=== PATIENT | female | born 2000 | race African-American/Black ===

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

== ENCOUNTER 2018-07-19 12:02 | Inpatient (IN) ==
[2018-07-19] MEDS ORDERED: *HR* Nalbuphine 10 MG/ML AMPUL IVP PRN (12:23)
[2018-07-19] MEDS ORDERED: Naloxone 0.4 MG/ML INJ IVP PRN (12:23)
[2018-07-19] MEDS ORDERED: Ondansetron 4 MG/2 ML VIAL IVP PRN (12:23)
[2018-07-19] MEDS ORDERED: Penicillin G Potassium 5,000,000 UNIT in 0.9 % Sodium Chloride Mini Bag 100 ML IVPB ONE (12:23)
[2018-07-19] MEDS ORDERED: Metoclopramide 10 MG/2 ML VIAL IVP PRN (12:23)
[2018-07-19] MEDS ORDERED: Famotidine 20 MG/2 ML VIAL IVP PRN (12:23)
--- NOTE | 2018-07-19 12:37 | OB/GYN History & Physical ---
Date of Encounter: 07/19/18 Time of Encounter: 12:29 Assessment and Plan (1) 38 weeks gestation of Current visit: Yes Status: Acute SROM at 1145 of clear fluid. NST reactive, Category I, FHR baseline 130bpm. Admit for delivery. Anticipate . (2) Rupture of membranes with clear amniotic fluid Current visit: Yes Status: Acute Nitrazine & Fern positive. Admit for delivery. (3) Positive GBS test Current visit: Yes Status: Acute Admit for delivery. PCN Q4 until delivery. (4) Marijuana abuse Current visit: Yes Status: Acute UTox positive for THC in November 2017. Plan for Cord STAT. SW consult. (5) Short interval between pregnancies affecting , antepartum Current visit: Yes Status: Acute History of Present Illness Chief complaint: LOF & Contractions HPI: Ms. Vincenzo Mckeon is a 18 y/o female presents with contractions & LOF. Pt reports contractions began last evening and were about 10 minutes apart this morning with increasing intensity. She reports LOF at 1145 with clear fluid. Denies VB. Reports good FM. First child at 6 days of age from SIDS. A Positive GBS positive Rubella & Varicella immune HIV Negative, Hep B nonreactive Syphillis negative Past Med Surg Social Fam HX - Past Medical History Medical history: no medical history Psychiatric history: no psych history - Past Surgical History Surgical History: no surgical history - Social History Smoking Status: Never smoker Smokeless Tobacco Status: No Alcohol use: none Drug use: none - Family History Mother Living Status: Still Living Obstetrical History - Pregnancies : 2 Para: 1 Term: 1 : 0 Ab's: 0 Livin (First child at 6 days of age from SIDS) Medications and Allergies metroNIDAZOLE [Flagyl] 500 mg PO BID #14 tablet 05/11/17 [Rx] Breast Pump [BREAST PUMP] 1 each .ROUTE AD #1 each 08/17/17 [Rx] Docusate [Colace] 100 mg PO BID PRN #60 capsule 08/17/17 [Rx] Ibuprofen [Motrin] 600 mg PO Q6HR PRN #30 tablet 08/17/17 [Rx] Allergy/AdvReac Type Severity Reaction Status Date / Time No Known Allergies Allergy Verified 12/18/16 19:08 Review of System OB All systems PM: reviewed and no additional remarkable complaints except as stated Exam - Constitutional Constitutional: well developed, well nourished, no acute distress, average body habitus - Lungs Respiratory exam: CTAB - Cardiovascular Cardiovascular exam: RRR, +S1, +S2 - Abdomen Abdomen: Present: bowel sounds normal, gravid, non tender - Extremities Extremities exam: normal inspection Deep Tendon Reflex Grade: 2+ Normal - Cervix Dilation: 3 Effacement: 80 Station: -1 - Anus/Rectum Anus/Rectum: Present: normal perianal skin Results All other labs normal. - VTE Reasons for not Prescribing Prophylaxis: Treatment not Indicated - Low risk for VTE
[2018-07-19 13:14] LABS: Basophils % 0.2 %; Eosinophils # 0.1 K/mcL (0.0-0.6); Eosinophils % 0.5 %; Hematocrit 34.2 % (35.3-44.9); Hemoglobin 11.4 g/dL (11.5-15.4); Immature Granulocytes % 0.9 % (0-4); Lymphocytes # 2.6 K/mcL (0.6-4.6); Lymphocytes % 16.2 %; Mean Corpuscular HGB Conc 33.3 g/dL (31.6-35.5); Mean Corpuscular Hemoglobin 28.4 pg (28.0-33.3); Mean Corpuscular Volume 85.1 fL (83.0-100.0); Mean Platelet Volume 10.8 fL (9.4-12.4); Monocytes # 1.5 K/mcL (0.0-1.3); Monocytes % 9.6 %; Neutrophils # 11.5 K/mcL (1.6-8.9); Platelet Count 173 K/mcL (140-400); Red Blood Count 4.02 M/mcL (3.82-4.97); Red Cell Distribution Width 14.1 % (11.5-14.5); Segmented Neutrophils % 72.6 %
--- NOTE | 2018-07-19 14:21 | OB Labor Progress Note ---
Date of Encounter: 07/19/18 Time of Encounter: 14:19 Labor Progress Note - Subjective Subjective: Pt denies complaints at this time. - Heart Tones Heart Tones: Category I - Te[place]dale Te[place]dale: no contractions - Plan Plan: POC discussed with pt. Pt offered ambulation and/or breastpumping to start contractions but she prefers to start medication to get the contractions going. Will begin pitocin augmentation.
[2018-07-19] MEDS ORDERED: Oxytocin 20 units/ LR 1000 mL 20 UNIT/1,000 ML BAG IVC SCH ×2 (14:30→20:24)
[2018-07-19] MEDS ORDERED: Ringers Solution, Lactated 1,000 ML ONE (14:34)
[2018-07-19 15:21] LABS: Amphetamine Screen,Urine Negative ng/mL (Cutoff=1000); Barbiturate Screen,Urine Negative ng/mL (Cutoff=200); Benzodiazepines Screen,Urine Negative ng/mL (Cutoff=200); Cannabinoid Screen,Urine Negative ng/mL (Cutoff = 50); Cocaine Screen,Urine Negative ng/mL (Cutoff= 300); Opiate Screen,Urine Negative ng/mL (Cutoff=300); Phencyclidine Screen,Urine Negative ng/mL (Cutoff=25)
[2018-07-19] MEDS ORDERED: Penicillin G Potassium 2,500,000 UNIT in 0.9 % Sodium Chloride 100 ML IVPB SCH (16:00)
[2018-07-19] MEDS ORDERED: Benzocaine/Menthol 56 GM AEROSOL SPRAY TP PRN (18:46)
--- NOTE | 2018-07-19 18:51 | OB/GYN Procedure Note ---
Delivery - Delivery Date: 07/19/18 Provider: Lilliam Hodgson Intrapartum events: none Delivery induction: none Delivery augmentation: pitocin Delivery monitor: external FHT, external uterine Anesthesia: intravenous Quantitated Blood Loss: 100 - (s) Infant A Delivery Date: 07/19/18 Infant Delivery Time: 18:13 Presentation: vertex Position: BRYCE Route of delivery: Gender: Male Viability: Viable Pounds: 6 Ounces: 2 Weight Gram: 2.78 kg at 1 minute: 8 at 5 mins: 9 Shoulder Dystocia: not encountered Placenta: spontaneous Cord: 3 umbilical vessels - Repair Episiotomy: none Laceration Description: Superficial (bilateral periurethral) - Complications Delivery complications: none - Disposition Mom disposition: stable in LDR disposition: stable in LDR - Comments Comments: Pt presented following SROM and progressed normally with pitocin augmentation. She underwent for viable male weighing 6lbs 2oz with apgars 8 at one minute and 9 at five minutes. After pulsations ceased the cord was clamped and cut and the placenta delivered spontaneous and intact. Bilateral ydlan-urethral lacerations were superficial and hemostatic and therefore not repaired. EBL 100ml. Mother and baby stable in kangaroo care following .
--- NOTE | 2018-07-19 19:17 | OB/GYN Procedure Note ---
Delivery - Delivery Provider: Lilliam Hodgson Intrapartum events: none Delivery induction: none - Infant (s) A Delivery Date: 07/19/18 Delivery Time: 18:13 Presentation: vertex Position: BRYCE Gender: Male Viability: Viable Weight Gram: 2.78 kg at 1 minute: 8 at 5 mins: 9 Shoulder Dystocia: not encountered - Repair Laceration Description: Superficial
[2018-07-19] MEDS ORDERED: Measles/Mumps/Rubella Vacc 0.5 ML VIAL SQ PRN (20:24)
[2018-07-19] MEDS ORDERED: Acetaminophen 325 MG TABLET PO PRN (20:24)
[2018-07-19] MEDS ORDERED: Ibuprofen 600 MG TABLET PO PRN (20:24)
[2018-07-20] MEDS ORDERED: Prenatal Vit/FA 1 EACH TABLET PO SCH (09:00)
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
[2018-07-20 15:25] VITALS: BP 143/80
== END 2018-07-20 17:30 | disposition home or self-care (01) | DRG 560 ==
LOC: 1NENULAB → OBSVTOIN 12:02 → 1NENUOBS 20:32
PROVIDERS: ADMIT Registered Nurse; ATTEND Registered Nurse

== ENCOUNTER 2019-04-24 21:13 | Observation (INO) ==
--- NOTE | 2019-04-24 22:45 | Emergency Department Note ---
Disposition Clinical Impression: Vaginal bleeding in patient at less than 20 weeks gestation, Threatened Disposition: Still a Patient Condition: Good Instructions: Threatened Miscarriage (ED) Reasons to Return/Additional Instructions: Return to the emergency department if you have any worsening of your current symptoms, or if you develop any new symptoms. Follow-up your emergency department visit by setting up an appointment with your GLASS WORKER to be seen within the next 2 or 3 days. Referrals: Jose G Bell MD [Primary Care Provider] - [facility] [Provider Group] Forms: ED Satisfaction Letter Time of Disposition: 00:33 General Adult HPI - General Chief complaint: ED Vaginal Bleeding Stated complaint: migraine Time Seen by Provider: 04/24/19 22:44 Source: patient Limitations: no limitations Nursing Notes Reviewed: Yes Vital Signs Reviewed: Yes - History of Present Illness HPI Narrative: 18-year-old female presents emergency department with concern for lower abdominal pain, cramping, bleeding. Patient reports that her last true menstrual period was February 19. She reports intermittent bleeding ever since. States that she has been seen in the emergency department and had an ultrasound. Report from that date state that there was no intrauterine identified at that time. Reports that she has not followed up in the OB clinic. States that she has never had this type of discomfort with a in the past. This is her third , her other 2 were normal vaginal deliveries and no other complications. Patient denies any dysuria, urinary. She denies urgency, vaginal discharge, concern for sexual transmitted infection. Pain Scale: 9 - Related Data Home Medications Medication Instructions Recorded Confirmed Vit Calc,Iron,Folic 1 tab PO DAILY 07/19/18 07/19/18 [ Vitamins] Previous Rx's Medication Instructions Recorded Acetaminophen [Tylenol] 650 mg PO Q6HR PRN tablet 07/20/18 Docusate [Colace] 100 mg PO BID capsule 07/20/18 Ibuprofen [Motrin] 600 mg PO Q6HR PRN #60 tablet 07/20/18 Cephalexin [Keflex] 500 mg PO BID 5 Days capsule 04/01/19 Doxylamine/Pyridoxine HCl 1 each PO Q12-24H PRN #20 tablet. 04/01/19 [Joe Allen 10-10 mg Tablet] Acetaminophen [Tylenol] 650 mg PO Q6HR PRN 5 Days #20 04/07/19 tablet Famotidine [Pepcid] 40 mg PO DAILY 30 Days #30 tablet 04/07/19 Pnv No.95/Ferrous Fum/Folic AC 1 each PO DAILY 30 Days #30 tablet 04/07/19 [ Caplet] Allergies Allergy/AdvReac Type Severity Reaction Status Date / Time No Known Allergies Allergy Verified 07/19/18 12:54 All systems ED: reviewed and negative except as stated. Review of Systems: As Per HPI Constitutional: Denies: fever Cardiovascular: Denies: chest pain Respiratory: Denies: cough, dyspnea Gastrointestinal: Reports: abdominal pain. Denies: nausea, vomiting Genitourinary: Denies: urgency, dysuria, frequency Musculoskeletal: Denies: back pain Past Medical History - Past Medical History Attestation: Yes The following information was validated with the patient. Medical history: Reports: no medical history Surgical history: Reports: no surgical history Psychiatric history: Reports: no psych history GLASS WORKER history: Reports: no GLASS WORKER history - Social History Smoking Status: Never smoker Smokeless Tobacco Status: No Alcohol use: Reports: none Drug use: Reports: none Physical Exam - General Limitations: no limitations General appearance: alert, in no apparent distress - Head Head exam: normocephalic - Eye Eye exam: Present: EOMI - ENT ENT exam: mucous membranes moist - Neck Neck exam: Present: trachea midline - Chest Chest inspection: Present: symmetric chest wall rise - Respiratory Respiratory exam: Present: normal lung sounds bilaterally. Absent: respiratory distress, accessory muscle use - Cardiovascular Cardiovascular exam: Present: regular rate, normal rhythm, normal heart sounds - Abdominal Exam Abdominal exam: Present: soft, tenderness. Absent: distention, guarding, rebound, rigidity Abdominal tenderness: Present: suprapubic, moderate - Extremities Exam Extremities exam: Present: full ROM - Back Exam Back exam: Present: normal inspection - Neurological Exam Neurological exam: Present: alert, oriented X3 - Psychiatric Psychiatric exam: Present: normal affect, normal mood - Skin Skin exam: Present: warm, dry, intact, normal color. Absent: rash Course Vital Signs Temperature 98.2 F 04/24/19 21:47 Pulse Rate 108 04/24/19 21:47 Respiratory Rate 20 04/24/19 21:47 Blood Pressure 106/72 04/24/19 21:47 O2 Sat by Pulse Oximetry 97 04/24/19 21:47 Temperature 98.2 F 04/24/19 21:47 Pulse Rate 96 04/24/19 23:04 Respiratory Rate 16 04/24/19 23:04 Blood Pressure 126/90 04/24/19 23:04 O2 Sat by Pulse Oximetry 100 04/24/19 23:04 Oxygen Delivery Oxygen Delivery Room Air Medical Decision Making - MDM Narrative Medical decision making narrative: 18-year-old female presents emergency department with concern for abdominal cramping, bleeding, the setting of . Patient is A+, does not need reexam. Patient mildly tachycardic initially, but blood pressure been stable. Hemoglobin is stable. Beta Quant is elevated. We will have ultrasound come in and confirm intrauterine . Our bedside ultrasound was limited and cannot confirm intrauterine . Transfer of care provided to Dr. Hill. - Lab Data Result diagrams: 04/24/19 23:32 04/24/19 23:32 Lab Results 04/24/19 04/24/19 04/24/19 Range/Units 22:55 22:55 23:32 WBC (4.3-11.1) K/mcL RBC (3.82-4.97) M/mcL Hgb (11.5-15.4) g/dL Hct (35.3-44.9) % MCV (83.0-100.0) fL MCH (28.0-33.3) pg MCHC (31.6-35.5) g/dL RDW (11.5-14.5) % Plt Count (140-400) K/mcL MPV (9.4-12.4) fL Immature Gran % (0-4) % Seg Neutrophils % % Lymphocytes % % Monocytes % % Eosinophils % % Basophils % % Neutrophils # (1.6-8.9) K/mcL Lymphocytes # (0.6-4.6) K/mcL Monocytes # (0.0-1.3) K/mcL Eosinophils # (0.0-0.6) K/mcL Basophils # (0.0-0.2) K/mcL Sodium (136-145) mEq/L Potassium (3.5-5.1) mEq/L Chloride (98-107) mEq/L Carbon Dioxide (23-29) mEq/L BUN (6-20) mg/dL Creatinine (0.60-1.20) mg/dL Est GFR ( Amer) (> 60) Est GFR (Non-Af Amer) (> 60) BUN/Creatinine Ratio (6-26) Glucose (70-105) mg/dL Calculated Osmolality (280-300) Calcium (8.6-10.3) mg/dL Beta HCG, Quant 4249 H (Less than 5) mIU/mL Urine Color Dark Yellow (Yellow) Urine Clarity Clear (Clear) Urine pH 5.5 (5.0-8.0) pH Units Ur Specific [place] > 1.030 H (1.010-1.025) Urine Protein Trace (Neg-Trace) mg/dL Urine Glucose (UA) Normal (Normal) mg/dL Urine Ketones Negative (Negative) mg/dL Urine Blood Large H (Negative) Urine Nitrite Negative (Negative) Urine Bilirubin Negative (Negative) Urine Urobilinogen Normal (Normal) mg/dL Ur Leukocyte Esterase Negative (Negative) Urine Microscopic RBC 0-3 (0-3) per hpf Urine Microscopic WBC 0-3 (0-3) per hpf Ur Squamous Epith Cells Many H (None-Few) per lpf Urine Bacteria None Seen (None-Few) per hpf Hyaline Casts None Seen (None-Few) per lpf Ur Culture Indicated? NO (NO) Urine Test Positive A (Negative) 04/24/19 04/24/19 Range/Units 23:32 23:32 WBC 8.6 (4.3-11.1) K/mcL RBC 4.06 (3.82-4.97) M/mcL Hgb 11.5 (11.5-15.4) g/dL Hct 34.8 L (35.3-44.9) % MCV 85.7 (83.0-100.0) fL MCH 28.3 (28.0-33.3) pg MCHC 33.0 (31.6-35.5) g/dL RDW 12.4 (11.5-14.5) % Plt Count 213 (140-400) K/mcL MPV 10.3 (9.4-12.4) fL Immature Gran % 0.2 (0-4) % Seg Neutrophils % 60.2 % Lymphocytes % 29.7 % Monocytes % 8.8 % Eosinophils % 0.9 % Basophils % 0.2 % Neutrophils # 5.2 (1.6-8.9) K/mcL Lymphocytes # 2.6 (0.6-4.6) K/mcL Monocytes # 0.8 (0.0-1.3) K/mcL Eosinophils # 0.1 (0.0-0.6) K/mcL Basophils # 0.0 (0.0-0.2) K/mcL Sodium 138 (136-145) mEq/L Potassium 3.1 L (3.5-5.1) mEq/L Chloride 106 (98-107) mEq/L Carbon Dioxide 25 (23-29) mEq/L BUN 11 (6-20) mg/dL Creatinine 0.75 (0.60-1.20) mg/dL Est GFR ( Amer) > 60 (> 60) Est GFR (Non-Af Amer) > 60 (> 60) BUN/Creatinine Ratio 15 (6-26) Glucose 101 (70-105) mg/dL Calculated Osmolality 286 (280-300) Calcium 9.0 (8.6-10.3) mg/dL Beta HCG, Quant (Less than 5) mIU/mL Urine Color (Yellow) Urine Clarity (Clear) Urine pH (5.0-8.0) pH Units Ur Specific [place] (1.010-1.025) Urine Protein (Neg-Trace) mg/dL Urine Glucose (UA) (Normal) mg/dL Urine Ketones (Negative) mg/dL Urine Blood (Negative) Urine Nitrite (Negative) Urine Bilirubin (Negative) Urine Urobilinogen (Normal) mg/dL Ur Leukocyte Esterase (Negative) Urine Microscopic RBC (0-3) per hpf Urine Microscopic WBC (0-3) per hpf Ur Squamous Epith Cells (None-Few) per lpf Urine Bacteria (None-Few) per hpf Hyaline Casts (None-Few) per lpf Ur Culture Indicated? (NO) Urine Test (Negative)
[2019-04-24 23:09] LABS: Bilirubin,Urine Negative (Negative); Blood,Urine Large (Negative); Clarity,Urine Clear (Clear); Color,Urine Dark Yellow (Yellow); Glucose,Urine (UA) Normal (Normal); Ketones,Urine Negative (Negative); Leukocyte Esterase,Urine Negative (Negative); Nitrite,Urine Negative (Negative); PH,Urine 5.5 pH Units (5.0-8.0); Protein,Urine Trace mg/dL (Neg-Trace); Specific Gravity,Urine > 1.030 (1.010-1.025); Urobilinogen,Urine Normal (Normal)
[2019-04-24 23:12] LABS: Bacteria,Urine None Seen per hpf (None-Few); Hyaline Casts,Urine None Seen per lpf (None-Few); RBC,Urine 0-3 per hpf (0-3); Squamous Epithelial Cell,Urine Many per lpf (None-Few); WBC,Urine 0-3 per hpf (0-3)
[2019-04-24 23:42] LABS: Basophils % 0.2 %; Eosinophils # 0.1 K/mcL (0.0-0.6); Eosinophils % 0.9 %; Hematocrit 34.8 % (35.3-44.9); Hemoglobin 11.5 g/dL (11.5-15.4); Immature Granulocytes % 0.2 % (0-4); Lymphocytes # 2.6 K/mcL (0.6-4.6); Lymphocytes % 29.7 %; Mean Corpuscular Hemoglobin 28.3 pg (28.0-33.3); Mean Corpuscular Volume 85.7 fL (83.0-100.0); Mean Platelet Volume 10.3 fL (9.4-12.4); Monocytes # 0.8 K/mcL (0.0-1.3); Monocytes % 8.8 %; Neutrophils # 5.2 K/mcL (1.6-8.9); Platelet Count 213 K/mcL (140-400); Red Blood Count 4.06 M/mcL (3.82-4.97); Red Cell Distribution Width 12.4 % (11.5-14.5); Segmented Neutrophils % 60.2 %; White Blood Count 8.6 K/mcL (4.3-11.1)
[2019-04-25 00:01] LABS: BUN/Creatinine Ratio 15 (6-26); Blood Urea Nitrogen 11 mg/dL (6-20); Carbon Dioxide 25 mEq/L (23-29); Chloride 106 mEq/L (98-107); Glucose 101 mg/dL (70-105); Osmolality,Calculated 286 (280-300); Potassium 3.1 mEq/L (3.5-5.1); Sodium 138 mEq/L (136-145); eGFR For African Americans > 60 (> 60); eGFR For Non-African Americans > 60 (> 60)
[2019-04-25] MEDS ORDERED: Potassium Chloride Elixir 20 MEQ/15 ML UDC PO ONE (00:08)
[2019-04-25] MEDS ORDERED: *HR* Nalbuphine 10 MG/ML AMPUL IV STA (00:28)
--- NOTE | 2019-04-25 00:29 | Emergency Department Note ---
Disposition Clinical Impression: Vaginal bleeding in patient at less than 20 weeks gestation Disposition: Still a Patient Condition: Good Prescriptions: Lidocaine 4% CRM (LMX) [Lmx 4] 5 gm TP TID #1 cream Referrals: Jose G Bell MD [Primary Care Provider] - Forms: ED Satisfaction Letter Time of Disposition: 00:31 General Adult HPI - General Chief complaint: ED Vaginal Bleeding Stated complaint: Vaginal Bleeding/Cramping Time Seen by Provider: 04/24/19 22:44 Source: patient Limitations: no limitations - History of Present Illness Pain Scale: 9 - Related Data Home Medications Medication Instructions Recorded Confirmed Vit Calc,Iron,Folic 1 tab PO DAILY 07/19/18 07/19/18 [ Vitamins] Previous Rx's Medication Instructions Recorded Acetaminophen [Tylenol] 650 mg PO Q6HR PRN tablet 07/20/18 Docusate [Colace] 100 mg PO BID capsule 07/20/18 Ibuprofen [Motrin] 600 mg PO Q6HR PRN #60 tablet 07/20/18 Cephalexin [Keflex] 500 mg PO BID 5 Days capsule 04/01/19 Doxylamine/Pyridoxine HCl 1 each PO Q12-24H PRN #20 tablet. 04/01/19 [Joe Allen 10-10 mg Tablet] Acetaminophen [Tylenol] 650 mg PO Q6HR PRN 5 Days #20 04/07/19 tablet Famotidine [Pepcid] 40 mg PO DAILY 30 Days #30 tablet 04/07/19 Pnv No.95/Ferrous Fum/Folic AC 1 each PO DAILY 30 Days #30 tablet 04/07/19 [ Caplet] Lidocaine 4% CRM (LMX) [Lmx 4] 5 gm TP TID #1 cream 04/24/19 Allergies Allergy/AdvReac Type Severity Reaction Status Date / Time No Known Allergies Allergy Verified 07/19/18 12:54 Past Medical History - Past Medical History Medical history: Reports: no medical history Surgical history: Reports: no surgical history Psychiatric history: Reports: no psych history LINE CONSTRUCTION SUPERVISOR history: Reports: no LINE CONSTRUCTION SUPERVISOR history - Social History Smoking Status: Never smoker Smokeless Tobacco Status: No Alcohol use: Reports: none Drug use: Reports: none Physical Exam - General Limitations: no limitations General appearance: alert, in no apparent distress Course Vital Signs Temperature 98.2 F 04/24/19 21:47 Pulse Rate 108 04/24/19 21:47 Respiratory Rate 20 04/24/19 21:47 Blood Pressure 106/72 04/24/19 21:47 O2 Sat by Pulse Oximetry 97 04/24/19 21:47 Temperature 98.2 F 04/24/19 21:47 Pulse Rate 96 04/24/19 23:04 Respiratory Rate 16 04/24/19 23:04 Blood Pressure 126/90 04/24/19 23:04 O2 Sat by Pulse Oximetry 100 04/24/19 23:04 Oxygen Delivery Oxygen Delivery Room Air Medical Decision Making - Lab Data Result diagrams: 04/24/19 23:32 04/24/19 23:32 Lab Results 04/24/19 04/24/19 04/24/19 Range/Units 22:55 22:55 23:32 WBC 8.6 (4.3-11.1) K/mcL RBC 4.06 (3.82-4.97) M/mcL Hgb 11.5 (11.5-15.4) g/dL Hct 34.8 L (35.3-44.9) % MCV 85.7 (83.0-100.0) fL MCH 28.3 (28.0-33.3) pg MCHC 33.0 (31.6-35.5) g/dL RDW 12.4 (11.5-14.5) % Plt Count 213 (140-400) K/mcL MPV 10.3 (9.4-12.4) fL Immature Gran % 0.2 (0-4) % Seg Neutrophils % 60.2 % Lymphocytes % 29.7 % Monocytes % 8.8 % Eosinophils % 0.9 % Basophils % 0.2 % Neutrophils # 5.2 (1.6-8.9) K/mcL Lymphocytes # 2.6 (0.6-4.6) K/mcL Monocytes # 0.8 (0.0-1.3) K/mcL Eosinophils # 0.1 (0.0-0.6) K/mcL Basophils # 0.0 (0.0-0.2) K/mcL Sodium (136-145) mEq/L Potassium (3.5-5.1) mEq/L Chloride (98-107) mEq/L Carbon Dioxide (23-29) mEq/L BUN (6-20) mg/dL Creatinine (0.60-1.20) mg/dL Est GFR ( Amer) (> 60) Est GFR (Non-Af Amer) (> 60) BUN/Creatinine Ratio (6-26) Glucose (70-105) mg/dL Calculated Osmolality (280-300) Calcium (8.6-10.3) mg/dL Urine Color Dark Yellow (Yellow) Urine Clarity Clear (Clear) Urine pH 5.5 (5.0-8.0) pH Units Ur Specific [place] > 1.030 H (1.010-1.025) Urine Protein Trace (Neg-Trace) mg/dL Urine Glucose (UA) Normal (Normal) mg/dL Urine Ketones Negative (Negative) mg/dL Urine Blood Large H (Negative) Urine Nitrite Negative (Negative) Urine Bilirubin Negative (Negative) Urine Urobilinogen Normal (Normal) mg/dL Ur Leukocyte Esterase Negative (Negative) Urine Microscopic RBC 0-3 (0-3) per hpf Urine Microscopic WBC 0-3 (0-3) per hpf Ur Squamous Epith Cells Many H (None-Few) per lpf Urine Bacteria None Seen (None-Few) per hpf Hyaline Casts None Seen (None-Few) per lpf Ur Culture Indicated? NO (NO) Urine Test Positive A (Negative) 04/24/19 Range/Units 23:32 WBC (4.3-11.1) K/mcL RBC (3.82-4.97) M/mcL Hgb (11.5-15.4) g/dL Hct (35.3-44.9) % MCV (83.0-100.0) fL MCH (28.0-33.3) pg MCHC (31.6-35.5) g/dL RDW (11.5-14.5) % Plt Count (140-400) K/mcL MPV (9.4-12.4) fL Immature Gran % (0-4) % Seg Neutrophils % % Lymphocytes % % Monocytes % % Eosinophils % % Basophils % % Neutrophils # (1.6-8.9) K/mcL Lymphocytes # (0.6-4.6) K/mcL Monocytes # (0.0-1.3) K/mcL Eosinophils # (0.0-0.6) K/mcL Basophils # (0.0-0.2) K/mcL Sodium 138 (136-145) mEq/L Potassium 3.1 L (3.5-5.1) mEq/L Chloride 106 (98-107) mEq/L Carbon Dioxide 25 (23-29) mEq/L BUN 11 (6-20) mg/dL Creatinine 0.75 (0.60-1.20) mg/dL Est GFR ( Amer) > 60 (> 60) Est GFR (Non-Af Amer) > 60 (> 60) BUN/Creatinine Ratio 15 (6-26) Glucose 101 (70-105) mg/dL Calculated Osmolality 286 (280-300) Calcium 9.0 (8.6-10.3) mg/dL Urine Color (Yellow) Urine Clarity (Clear) Urine pH (5.0-8.0) pH Units Ur Specific [place] (1.010-1.025) Urine Protein (Neg-Trace) mg/dL Urine Glucose (UA) (Normal) mg/dL Urine Ketones (Negative) mg/dL Urine Blood (Negative) Urine Nitrite (Negative) Urine Bilirubin (Negative) Urine Urobilinogen (Normal) mg/dL Ur Leukocyte Esterase (Negative) Urine Microscopic RBC (0-3) per hpf Urine Microscopic WBC (0-3) per hpf Ur Squamous Epith Cells (None-Few) per lpf Urine Bacteria (None-Few) per hpf Hyaline Casts (None-Few) per lpf Ur Culture Indicated? (NO) Urine Test (Negative) Attestation Statement - Attestation Attestation: I reviewed the residents documentation and agree with the residents assessment and plan of care. I have personally had face to face time with the patient. (Brief History, Brief Exam, and MDM) I personally supervised and was present for the costello/critical portions of the following procedures completed by the resident: transabdominal US 18 year old female presents to the ED with complaints of vaginal bleeding and her LMNP was February 19 and has been notiing dark red blood and small clots since then and follows with box fabricator group here. She is a female and has not had proper care. She was seen her [place] April 07 with an inconclusive US for rule out ectopic pregnacy. She is expereincing increased adbominal pain now. FA ST exam is otherwise negative and evaluation of her uterus transab shows some small pelvic fluid that could be concerning for ecoptic as we are having a difficult time assessing for IUP on transab US as she appers to have a bhcg that is 4249. Patinet will need a transvaginal US to rule out ectopic pregnacy. I will sign patient out to Dr. Sneed for followup on US and cosult with OBGYN as needed
--- NOTE | 2019-04-25 00:35 | Emergency Department Note ---
Disposition Clinical Impression: Vaginal bleeding in patient at less than 20 weeks gestation Ectopic without intrauterine Qualifiers: Location of ectopic : unspecified location Qualified Code(s): O00.90 - Unspecified ectopic without intrauterine Disposition: Admitted As Inpatient Condition: Good Instructions: Threatened Miscarriage (ED), Ectopic (ED) Reasons to Return/Additional Instructions: Return to the emergency department if you have any worsening of your current symptoms, or if you develop any new symptoms. Follow-up your emergency department visit by setting up an appointment with your WIRE DRAWING MACHINE TENDER to be seen within the next 2 or 3 days. Referrals: WIRE DRAWING MACHINE TENDER [facility] [Provider Group] Jose G Bell MD [Primary Care Provider] - Forms: ED Satisfaction Letter Time of Disposition: 01:46 General Adult HPI - General Chief complaint: ED Vaginal Bleeding Stated complaint: Vaginal Bleeding/Cramping Time Seen by Provider: 04/24/19 22:44 Source: patient Limitations: no limitations - History of Present Illness Pain Scale: 9 - Related Data Home Medications Medication Instructions Recorded Confirmed Vit Calc,Iron,Folic 1 tab PO DAILY 07/19/18 07/19/18 [ Vitamins] Previous Rx's Medication Instructions Recorded Acetaminophen [Tylenol] 650 mg PO Q6HR PRN tablet 07/20/18 Docusate [Colace] 100 mg PO BID capsule 07/20/18 Ibuprofen [Motrin] 600 mg PO Q6HR PRN #60 tablet 07/20/18 Cephalexin [Keflex] 500 mg PO BID 5 Days capsule 04/01/19 Doxylamine/Pyridoxine HCl 1 each PO Q12-24H PRN #20 tablet. 04/01/19 [Joe Allen 10-10 mg Tablet] Acetaminophen [Tylenol] 650 mg PO Q6HR PRN 5 Days #20 04/07/19 tablet Famotidine [Pepcid] 40 mg PO DAILY 30 Days #30 tablet 04/07/19 Pnv No.95/Ferrous Fum/Folic AC 1 each PO DAILY 30 Days #30 tablet 04/07/19 [ Caplet] Allergies Allergy/AdvReac Type Severity Reaction Status Date / Time No Known Allergies Allergy Verified 07/19/18 12:54 Constitutional: Denies: fever Cardiovascular: Denies: chest pain Respiratory: Denies: cough, dyspnea Gastrointestinal: Reports: abdominal pain. Denies: nausea, vomiting Genitourinary: Denies: urgency, dysuria, frequency Musculoskeletal: Denies: back pain Past Medical History - Past Medical History Medical history: Reports: no medical history Surgical history: Reports: no surgical history Psychiatric history: Reports: no psych history WIRE DRAWING MACHINE TENDER history: Reports: no WIRE DRAWING MACHINE TENDER history - Social History Smoking Status: Never smoker Smokeless Tobacco Status: No Alcohol use: Reports: none Drug use: Reports: none Physical Exam - General Limitations: no limitations General appearance: alert, in no apparent distress Course Vital Signs Temperature 98.2 F 04/24/19 21:47 Pulse Rate 108 04/24/19 21:47 Respiratory Rate 20 04/24/19 21:47 Blood Pressure 106/72 04/24/19 21:47 O2 Sat by Pulse Oximetry 97 04/24/19 21:47 Temperature 98.2 F 04/24/19 21:47 Pulse Rate 96 04/24/19 23:04 Respiratory Rate 16 04/24/19 23:04 Blood Pressure 126/90 04/24/19 23:04 O2 Sat by Pulse Oximetry 100 04/24/19 23:04 Oxygen Delivery Oxygen Delivery Room Air Medical Decision Making - Lab Data Result diagrams: 04/24/19 23:32 04/24/19 23:32 Lab Results 04/24/19 04/24/19 04/24/19 Range/Units 22:55 22:55 23:32 WBC (4.3-11.1) K/mcL RBC (3.82-4.97) M/mcL Hgb (11.5-15.4) g/dL Hct (35.3-44.9) % MCV (83.0-100.0) fL MCH (28.0-33.3) pg MCHC (31.6-35.5) g/dL RDW (11.5-14.5) % Plt Count (140-400) K/mcL MPV (9.4-12.4) fL Immature Gran % (0-4) % Seg Neutrophils % % Lymphocytes % % Monocytes % % Eosinophils % % Basophils % % Neutrophils # (1.6-8.9) K/mcL Lymphocytes # (0.6-4.6) K/mcL Monocytes # (0.0-1.3) K/mcL Eosinophils # (0.0-0.6) K/mcL Basophils # (0.0-0.2) K/mcL Sodium (136-145) mEq/L Potassium (3.5-5.1) mEq/L Chloride (98-107) mEq/L Carbon Dioxide (23-29) mEq/L BUN (6-20) mg/dL Creatinine (0.60-1.20) mg/dL Est GFR ( Amer) (> 60) Est GFR (Non-Af Amer) (> 60) BUN/Creatinine Ratio (6-26) Glucose (70-105) mg/dL Calculated Osmolality (280-300) Calcium (8.6-10.3) mg/dL Beta HCG, Quant 4249 H (Less than 5) mIU/mL Urine Color Dark Yellow (Yellow) Urine Clarity Clear (Clear) Urine pH 5.5 (5.0-8.0) pH Units Ur Specific [place] > 1.030 H (1.010-1.025) Urine Protein Trace (Neg-Trace) mg/dL Urine Glucose (UA) Normal (Normal) mg/dL Urine Ketones Negative (Negative) mg/dL Urine Blood Large H (Negative) Urine Nitrite Negative (Negative) Urine Bilirubin Negative (Negative) Urine Urobilinogen Normal (Normal) mg/dL Ur Leukocyte Esterase Negative (Negative) Urine Microscopic RBC 0-3 (0-3) per hpf Urine Microscopic WBC 0-3 (0-3) per hpf Ur Squamous Epith Cells Many H (None-Few) per lpf Urine Bacteria None Seen (None-Few) per hpf Hyaline Casts None Seen (None-Few) per lpf Ur Culture Indicated? NO (NO) Urine Test Positive A (Negative) 04/24/19 04/24/19 Range/Units 23:32 23:32 WBC 8.6 (4.3-11.1) K/mcL RBC 4.06 (3.82-4.97) M/mcL Hgb 11.5 (11.5-15.4) g/dL Hct 34.8 L (35.3-44.9) % MCV 85.7 (83.0-100.0) fL MCH 28.3 (28.0-33.3) pg MCHC 33.0 (31.6-35.5) g/dL RDW 12.4 (11.5-14.5) % Plt Count 213 (140-400) K/mcL MPV 10.3 (9.4-12.4) fL Immature Gran % 0.2 (0-4) % Seg Neutrophils % 60.2 % Lymphocytes % 29.7 % Monocytes % 8.8 % Eosinophils % 0.9 % Basophils % 0.2 % Neutrophils # 5.2 (1.6-8.9) K/mcL Lymphocytes # 2.6 (0.6-4.6) K/mcL Monocytes # 0.8 (0.0-1.3) K/mcL Eosinophils # 0.1 (0.0-0.6) K/mcL Basophils # 0.0 (0.0-0.2) K/mcL Sodium 138 (136-145) mEq/L Potassium 3.1 L (3.5-5.1) mEq/L Chloride 106 (98-107) mEq/L Carbon Dioxide 25 (23-29) mEq/L BUN 11 (6-20) mg/dL Creatinine 0.75 (0.60-1.20) mg/dL Est GFR ( Amer) > 60 (> 60) Est GFR (Non-Af Amer) > 60 (> 60) BUN/Creatinine Ratio 15 (6-26) Glucose 101 (70-105) mg/dL Calculated Osmolality 286 (280-300) Calcium 9.0 (8.6-10.3) mg/dL Beta HCG, Quant (Less than 5) mIU/mL Urine Color (Yellow) Urine Clarity (Clear) Urine pH (5.0-8.0) pH Units Ur Specific [place] (1.010-1.025) Urine Protein (Neg-Trace) mg/dL Urine Glucose (UA) (Normal) mg/dL Urine Ketones (Negative) mg/dL Urine Blood (Negative) Urine Nitrite (Negative) Urine Bilirubin (Negative) Urine Urobilinogen (Normal) mg/dL Ur Leukocyte Esterase (Negative) Urine Microscopic RBC (0-3) per hpf Urine Microscopic WBC (0-3) per hpf Ur Squamous Epith Cells (None-Few) per lpf Urine Bacteria (None-Few) per hpf Hyaline Casts (None-Few) per lpf Ur Culture Indicated? (NO) Urine Test (Negative) Critical Care Time Critical Care Time: Yes Total Critical Care Time: 30 Attestation: The high probability of a clinically significant, sudden or life threatening deterioration of the [] system(s) required my full and direct attention, intervention and personal management. The aggregate critical care time was [] minutes. This time is in addition to time spent performing reported procedures but includes the following: [] Data Review and interpretation [] Patient assessment and monitoring of vital signs [] Documentation [] Medication orders and management Attestation Statement - Attestation Attestation: Care assumed from Dr. Juan Carlos Evangelista and Rico pending pelvic US. Labs reviewed by me. Patient known blood type A+ 01:40: Case discussed with the interpreting radiologist. No intrauterine identified. Fluid in the pelvis. Concern for tubal . Call placed to WIRE DRAWING MACHINE TENDER on-call. The patient was reassessed. She is resting comfortably
[2019-04-25] MEDS ORDERED: *HR* Nalbuphine 10 MG/ML AMPUL IV ONE (02:55)
[2019-04-25] MEDS ORDERED: cefOXitin 1,000 MG in 0.9 % Sodium Chloride Mini Bag 100 ML IVPB ONE (02:58)
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
[2019-04-25] MEDS ORDERED: Ondansetron ODT 4 MG TAB.RAPDIS SL PRN (03:31)
[2019-04-25] MEDS ORDERED: Naloxone 0.4 MG/ML INJ IVP PRN (03:31)
[2019-04-25] MEDS ORDERED: Acetaminophen IV 1,000 MG/100 ML INFUS..BTL IVPB PRN (03:31)
[2019-04-25] MEDS ORDERED: Doxycycline 100 MG in 0.9 % Sodium Chloride Mini Bag 100 ML IVPB SCH (09:02)
[2019-04-25 10:42] LABS: Chlamydia Trachomatis DNA Ur NOT DETECTED (Not Detect)
[2019-04-25] MEDS: Ketorolac 30 MG/ML VIAL IVP PRN ×2 (11:22→22:25)
[2019-04-25 13:06] LABS: Basophils % 0.5 %; Eosinophils # 0.1 K/mcL (0.0-0.6); Eosinophils % 2.4 %; Hematocrit 36.8 % (35.3-44.9); Hemoglobin 11.9 g/dL (11.5-15.4); Immature Granulocytes % 0.2 % (0-4); Lymphocytes # 2.6 K/mcL (0.6-4.6); Lymphocytes % 43.8 %; Mean Corpuscular HGB Conc 32.3 g/dL (31.6-35.5); Mean Corpuscular Hemoglobin 27.5 pg (28.0-33.3); Mean Platelet Volume 10.5 fL (9.4-12.4); Monocytes # 0.6 K/mcL (0.0-1.3); Monocytes % 10.5 %; Neutrophils # 2.5 K/mcL (1.6-8.9); Platelet Count 196 K/mcL (140-400); Red Blood Count 4.33 M/mcL (3.82-4.97); Red Cell Distribution Width 12.5 % (11.5-14.5); Segmented Neutrophils % 42.6 %; White Blood Count 5.9 K/mcL (4.3-11.1)
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
--- NOTE | 2019-04-25 18:18 | OB/GYN Progress Note ---
Date of Encounter: 04/25/19 Time of Encounter: 18:16 - Assessment and Plan (1) Vaginal bleeding in patient at less than 20 weeks gestation Current Visit: Yes Status: Acute Sequence of events: 04/11- patient presented to the ED with abdominal pain and was noted to be . Her beta hCG was 151. 7/8- she returned to the ED for a repeat beta hCG and was 135. 7/11- she presented again to the ED with abdominal pain and spotting. Her beta hCG had risen to 407. A TVUS done showed no IUP but a complex cyst on the right measuring 2.2cm. 04/24- she presented with vaginal bleeding and her beta HCG was 4249 with extensive free fluid in the pelvis concerning for a ruptured ectopic. No IUP was noted. The patient was clinically stable including her labs and vitals and she did not want surgery so she was managed expectantly. 04/25- repeat beta hCG showed a drop of 3777 and she continues to remain stable I discussed with her that the next steps in management will be to repeat the beta hCG tomorrow and will consider MTX before discharge if the levels have plateaued or dropped slightly. She still does not want surgery but I counseled her that if her condition worsens, surgery will be the best option for management. We may or may not repeat the U/S tomorrow, ok to have dinner, will stop antibiotics. Subjective - Subjective Interval history: Patient is doing well and she wants to eat. Her beta hCG is dropping. Her bleeding has subsided. Objective - Vital Signs Latest vital signs: Vital Signs Temp Pulse Resp BP Pulse Ox 04/25/19 16:23 16 04/25/19 11:56 98.1 F 57 16 97/57 100 04/25/19 08:34 98 F 62 16 95/62 98 04/25/19 04:07 98.3 F 60 14 97/59 100 04/25/19 02:38 62 16 104/59 100 04/25/19 00:00 92 16 113/81 100 04/24/19 23:04 96 16 126/90 100 04/24/19 21:47 98.2 F 108 20 106/72 97 Intake and Output 04/25/19 04/25/19 04/25/19 07:59 15:59 23:59 Intake Total 240 / 240 Balance 240 / 240 Intake: Oral 240 / 240 Other: Meal Breakfast Percent of Meal Consumed 5% Stool Characteristics Normal for Patient - I&O's I&O's: Intake & Output 04/22/19 04/23/19 04/24/19 04/25/19 23:59 23:59 23:59 23:59 Intake Total 240 / 240 Balance 240 / 240 Weight 69.626 kg - Exam Abdomen: Present: soft (very mild generalized tenderness ) - Labs Labs: Abnormal lab results Hct 34.8 % (35.3-44.9) L 04/24/19 23:32 MCH 27.5 pg (28.0-33.3) L 04/25/19 12:53 Potassium 3.1 mEq/L (3.5-5.1) L 04/24/19 23:32 Beta HCG, Quant 3777 mIU/mL (Less than 5) H 04/25/19 12:53 Ur Specific [place] > 1.030 (1.010-1.025) H 04/24/19 22:55 Urine Blood Large (Negative) H 04/24/19 22:55 Ur Squamous Epith Cells Many per lpf (None-Few) H 04/24/19 22:55 Urine Test Positive (Negative) A 04/24/19 22:55 Consult Discharge Plan - Plan Referrals: Jose G Bell MD [Primary Care Provider] -
[2019-04-26] MEDS ORDERED: cefTRIAXone 1,000 MG in Water for inj. (sterile) 10 ML IVP SCH (03:00)
[2019-04-26 07:58] VITALS: BP 132/75
[2019-04-26] MEDS: Ketorolac 30 MG/ML VIAL IVP PRN (11:30)
[2019-04-26] MEDS ORDERED: Methotrexate PFS 25 MG/ML VIAL IM ONE (13:51)
--- NOTE | 2019-04-26 13:59 | Discharge Summary ---
Date of Encounter: 05/06/19 Time of Encounter: 14:31 - Discharge Diagnosis (1) Ectopic without intrauterine Priority: Primary Status: Acute Comments: Pt with pain in rlq that is mild. She is having light bleeding and her quant is dropping. Pt is aware of u/s findings of free fluid in abd with probable ectopic preg vs sab. She does not have peritoneal s/sx's. She is aware that this may worsen and if so she should call. She desires to recieve MTX IM and then be d/c'd as opposed to surgical mgmt. She is aware of possible SE's and desires to proceed. Qualifiers: Location of ectopic : unspecified location Qualified Code(s): O00.90 - Unspecified ectopic without intrauterine - Discharge Medications Prescriptions: New HYDROcodone/Acet 5/325 mg [[place] 5-325 mg] 1 tab PO Q4H PRN 7 Days #25 tab PRN Reason: post op pain Continued Ibuprofen [Motrin] 600 mg PO Q6HR PRN #60 tablet PRN Reason: Cramping No Action Vit Calc,Iron,Folic [ Vitamins] 1 tab PO DAILY Acetaminophen [Tylenol] 650 mg PO Q6HR PRN tablet PRN Reason: Mild Pain Docusate [Colace] 100 mg PO BID capsule Cephalexin [Keflex] 500 mg PO BID 5 Days capsule Doxylamine/Pyridoxine HCl [Joe Allen 10-10 mg Tablet] 1 each PO Q12-24H PRN #20 tablet. PRN Reason: nausea Famotidine [Pepcid] 40 mg PO DAILY 30 Days #30 tablet Pnv No.95/Ferrous Fum/Folic AC [ Caplet] 1 each PO DAILY 30 Days #30 tablet Acetaminophen [Tylenol] 650 mg PO Q6HR PRN 5 Days #20 tablet PRN Reason: back pain Home Medications: Vit Calc,Iron,Folic [ Vitamins] 1 tab PO DAILY 07/19/18 [History] Acetaminophen [Tylenol] 650 mg PO Q6HR PRN tablet 07/20/18 [Rx] Docusate [Colace] 100 mg PO BID capsule 07/20/18 [Rx] Cephalexin [Keflex] 500 mg PO BID 5 Days capsule 04/01/19 [Rx] Doxylamine/Pyridoxine HCl [Joe Allen 10-10 mg Tablet] 1 each PO Q12-24H PRN #20 tablet. 04/01/19 [Rx] Acetaminophen [Tylenol] 650 mg PO Q6HR PRN 5 Days #20 tablet 04/07/19 [Rx] Famotidine [Pepcid] 40 mg PO DAILY 30 Days #30 tablet 04/07/19 [Rx] Pnv No.95/Ferrous Fum/Folic AC [ Caplet] 1 each PO DAILY 30 Days #30 tablet 04/07/19 [Rx] HYDROcodone/Acet 5/325 mg [[place] 5-325 mg] 1 tab PO Q4H PRN 7 Days #25 tab 04/26/19 [Rx] Ibuprofen [Motrin] 600 mg PO Q6HR PRN #60 tablet 04/26/19 [Rx] Allergies/Adverse Reactions: Allergy/AdvReac Type Severity Reaction Status Date / Time No Known Allergies Allergy Verified 07/19/18 12:54 Data Procedures and tests throughout hospitalization: Laboratory Tests 04/24/19 04/24/19 04/24/19 22:55 22:55 23:32 WBC RBC Hgb Hct MCV MCH MCHC RDW Plt Count MPV Immature Gran % Seg Neutrophils % Lymphocytes % Monocytes % Eosinophils % Basophils % Neutrophils # Lymphocytes # Monocytes # Eosinophils # Basophils # Sodium Potassium Chloride Carbon Dioxide BUN Creatinine Est GFR ( Amer) Est GFR (Non-Af Amer) BUN/Creatinine Ratio Glucose Calculated Osmolality Calcium Beta HCG, Quant 4249 H Urine Color Dark Yellow Urine Clarity Clear Urine pH 5.5 Ur Specific [place] > 1.030 H Urine Protein Trace Urine Glucose (UA) Normal Urine Ketones Negative Urine Blood Large H Urine Nitrite Negative Urine Bilirubin Negative Urine Urobilinogen Normal Ur Leukocyte Esterase Negative Urine Microscopic RBC 0-3 Urine Microscopic WBC 0-3 Ur Squamous Epith Cells Many H Urine Bacteria None Seen Hyaline Casts None Seen Ur Culture Indicated? NO Urine Test Positive A Ur C. trach DNA (PCR) U N.gonorrhoeae DNA PCR Blood Type Antibody Screen 04/24/19 04/24/19 04/25/19 23:32 23:32 02:24 WBC 8.6 RBC 4.06 Hgb 11.5 Hct 34.8 L MCV 85.7 MCH 28.3 MCHC 33.0 RDW 12.4 Plt Count 213 MPV 10.3 Immature Gran % 0.2 Seg Neutrophils % 60.2 Lymphocytes % 29.7 Monocytes % 8.8 Eosinophils % 0.9 Basophils % 0.2 Neutrophils # 5.2 Lymphocytes # 2.6 Monocytes # 0.8 Eosinophils # 0.1 Basophils # 0.0 Sodium 138 Potassium 3.1 L Chloride 106 Carbon Dioxide 25 BUN 11 Creatinine 0.75 Est GFR ( Amer) > 60 Est GFR (Non-Af Amer) > 60 BUN/Creatinine Ratio 15 Glucose 101 Calculated Osmolality 286 Calcium 9.0 Beta HCG, Quant Urine Color Urine Clarity Urine pH Ur Specific [place] Urine Protein Urine Glucose (UA) Urine Ketones Urine Blood Urine Nitrite Urine Bilirubin Urine Urobilinogen Ur Leukocyte Esterase Urine Microscopic RBC Urine Microscopic WBC Ur Squamous Epith Cells Urine Bacteria Hyaline Casts Ur Culture Indicated? Urine Test Ur C. trach DNA (PCR) U N.gonorrhoeae DNA PCR Blood Type A POSITIVE Antibody Screen NEGATIVE 04/25/19 04/25/19 04/25/19 07:44 12:53 12:53 WBC 5.9 RBC 4.33 Hgb 11.9 Hct 36.8 MCV 85.0 MCH 27.5 L MCHC 32.3 RDW 12.5 Plt Count 196 MPV 10.5 Immature Gran % 0.2 Seg Neutrophils % 42.6 Lymphocytes % 43.8 Monocytes % 10.5 Eosinophils % 2.4 Basophils % 0.5 Neutrophils # 2.5 Lymphocytes # 2.6 Monocytes # 0.6 Eosinophils # 0.1 Basophils # 0.0 Sodium Potassium Chloride Carbon Dioxide BUN Creatinine Est GFR ( Amer) Est GFR (Non-Af Amer) BUN/Creatinine Ratio Glucose Calculated Osmolality Calcium Beta HCG, Quant 3777 H Urine Color Urine Clarity Urine pH Ur Specific [place] Urine Protein Urine Glucose (UA) Urine Ketones Urine Blood Urine Nitrite Urine Bilirubin Urine Urobilinogen Ur Leukocyte Esterase Urine Microscopic RBC Urine Microscopic WBC Ur Squamous Epith Cells Urine Bacteria Hyaline Casts Ur Culture Indicated? Urine Test Ur C. trach DNA (PCR) NOT DETECTED U N.gonorrhoeae DNA PCR NOT DETECTED Blood Type Antibody Screen 04/26/19 09:05 WBC RBC Hgb Hct MCV MCH MCHC RDW Plt Count MPV Immature Gran % Seg Neutrophils % Lymphocytes % Monocytes % Eosinophils % Basophils % Neutrophils # Lymphocytes # Monocytes # Eosinophils # Basophils # Sodium Potassium Chloride Carbon Dioxide BUN Creatinine Est GFR ( Amer) Est GFR (Non-Af Amer) BUN/Creatinine Ratio Glucose Calculated Osmolality Calcium Beta HCG, Quant 3548 H Urine Color Urine Clarity Urine pH Ur Specific [place] Urine Protein Urine Glucose (UA) Urine Ketones Urine Blood Urine Nitrite Urine Bilirubin Urine Urobilinogen Ur Leukocyte Esterase Urine Microscopic RBC Urine Microscopic WBC Ur Squamous Epith Cells Urine Bacteria Hyaline Casts Ur Culture Indicated? Urine Test Ur C. trach DNA (PCR) U N.gonorrhoeae DNA PCR Blood Type Antibody Screen Labs on day of discharge: Labs from last 24 hours 04/26/19 04/25/19 09:05 07:44 Beta HCG, Quant 3548 H Ur C. trach DNA (PCR) NOT DETECTED U N.gonorrhoeae DNA PCR NOT DETECTED - Impressions ITS Impressions Transvaginal US 04/24/19 23:13 IMPRESSION: No evidence of intrauterine with HCG value of 4249; given the findings of extensive free pelvic and adnexal fluid, ectopic with possible rupture is suspected. Critical results were called by Dr. Dalton Silva to Sachajulissa Esparza on 04/25/2019 at 01:40. D/ / Dalton Silva / Dalton Silva Interpreting Provider: Dalton Silva 04/26/19-Pt with mild pain, has only taken toradol twice. Ambulating withoutdifficulty. She is hungry. 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 Date of admission: 04/25/19 03:07 Primary care physician: Jose G Bell MD - Patient Status Disposition: Home, Self-Care Condition: Good Overall status at discharge: patient is progressing back to baseline - Discharge Instructions Follow Up With: Taran Martin MD [Partnered Physician] - Additional Instructions: f/u Thursday as scheduled. Call sooner for worseing pain, dizzinees, heavy vaginal bleeding. - Diet and Activity Activity: increase activity as tolerated Diet: advance to your usual diet Hospital Course ST[employer]ER Time Attestation: Total time spent providing and/or coordinating discharge services: Exam - Constitutional Vitals: Temp Pulse Resp BP Pulse Ox 97.9 F 70 16 132/75 97 04/26/19 07:57 04/26/19 07:57 04/26/19 07:57 04/26/19 07:57 04/26/19 07:57 General appearance IM: A&O X 3 - Respiratory Respiratory exam: Present: CTAB - Cardiovascular Cardiovascular exam IM: Present: RRR - GI/Abdominal GI/Abdominal exam IM: normal bowel sounds Additional comments: abomen soft, not rigid, no peritoneal signs, mild/moderate RLQ pain. - VTE Reasons for not Prescribing Prophylaxis: Treatment not Indicated - Low risk for VTE
[2019-04-26] MEDS ORDERED: METHOTREXATE 50 MG/2 ML IM ONE (15:00)
== END 2019-04-26 16:29 | disposition home or self-care (01) ==
LOC: EMEROOARM 21:13 → 1NENUOBS 21:13
PROVIDERS: ADMIT Obstetrics & Gynecology; ATTEND Obstetrics & Gynecology

== ENCOUNTER 2022-06-02 12:59 | Inpatient (IN) ==
[2022-06-02] MEDS ORDERED: Famotidine 20 MG/2 ML VIAL IVP PRN (13:10)
[2022-06-02] MEDS ORDERED: Ondansetron 4 MG/2 ML VIAL IVP PRN (13:10)
[2022-06-02] MEDS ORDERED: Naloxone 0.4 MG/ML INJ IVP PRN (13:10)
[2022-06-02] MEDS ORDERED: Metoclopramide 10 MG/2 ML VIAL IVP PRN (13:10)
[2022-06-02] MEDS ORDERED: Ringers Solution, Lactated 1,000 ML IVC SCH (13:15)
[2022-06-02] MEDS ORDERED: miSOPROStoL 25 MCG TABLET PO PRN (13:18)
[2022-06-02 14:27] LABS: Basophils % 0.3 %; Eosinophils # 0.3 K/mcL (0.0-0.6); Eosinophils % 2.2 %; Hematocrit 35.9 % (35.3-44.9); Hemoglobin 11.9 g/dL (11.5-15.4); Immature Granulocytes % 0.9 % (0-4); Lymphocytes # 2.4 K/mcL (0.6-4.6); Lymphocytes % 18.7 %; Mean Corpuscular HGB Conc 33.1 g/dL (31.6-35.5); Mean Corpuscular Hemoglobin 29.5 pg (28.0-33.3); Mean Corpuscular Volume 88.9 fL (83.0-100.0); Mean Platelet Volume 10.9 fL (9.4-12.4); Monocytes # 0.9 K/mcL (0.0-1.3); Monocytes % 7.4 %; Neutrophils # 8.9 K/mcL (1.6-8.9); Platelet Count 165 K/mcL (140-400); Red Blood Count 4.04 M/mcL (3.82-4.97); Red Cell Distribution Width 13.2 % (11.5-14.5); Segmented Neutrophils % 70.5 %; White Blood Count 12.7 K/mcL (4.3-11.1)
[2022-06-02 14:37] LABS: Amphetamine Screen,Urine Negative ng/mL (Cutoff=1000); Barbiturate Screen,Urine Negative ng/mL (Cutoff=200); Benzodiazepines Screen,Urine Negative ng/mL (Cutoff=200); Cannabinoid Screen,Urine Negative ng/mL (Cutoff = 50); Cocaine Screen,Urine Negative ng/mL (Cutoff= 300); Opiate Screen,Urine Negative ng/mL (Cutoff=300); Phencyclidine Screen,Urine Negative ng/mL (Cutoff=25)
[2022-06-02] MEDS ORDERED: EPHEDrine 50 MG/ML VIAL IVP PRN (17:14)
[2022-06-02] MEDS ORDERED: Epidural Premix (fent/bupiv) 110 ML EP SCH (17:15)
[2022-06-02 17:44] LABS: Protein/Creatinine Ratio,Urine 0.14 mg/mg (0.00-0.20)
[2022-06-02 17:45] LABS: Alanine Aminotransferase 6 Units/L (7-52); Aspartate Amino Transferase 16 Units/L (13-39); BUN/Creatinine Ratio 17 (6-26); Blood Urea Nitrogen 10 mg/dL (6-20); Lactate Dehydrogenase 355 Units/L (140-271); Uric Acid 4.7 mg/dL (2.3-7.6)
[2022-06-02] MEDS ORDERED: *HR* HYDROcodone/Acet 5/325 mg TABLET ONE (18:07)
[2022-06-02] MEDS ORDERED: *HR* HYDROcodone/Acet 5/325 mg TABLET PO ONE (18:12)
[2022-06-02] MEDS ORDERED: Oxytocin 30 UNIT/503 ML BAG IVC SCH (19:15)
[2022-06-02] MEDS ORDERED: Oxytocin 30 UNIT/503 ML BAG IVC ONE (21:00)
[2022-06-03] MEDS: *HR* Nalbuphine 10 MG/ML AMPUL IV PRN ×2 (00:14→02:31)
[2022-06-03] MEDS ORDERED: *HR* HYDROcodone/Acet 5/325 mg TABLET PO ONE (04:06)
[2022-06-03] MEDS ORDERED: *HR* OxyCODONE Immed Rel 5 MG TABLET PO PRN (06:37)
[2022-06-03] MEDS ORDERED: Benzocaine/Menthol 56 GM AEROSOL SPRAY TP PRN (06:37)
[2022-06-03] MEDS ORDERED: Oxytocin 30 UNIT/503 ML BAG IVC SCH (06:37)
[2022-06-03] MEDS ORDERED: Ondansetron ODT 4 MG TAB.RAPDIS SL PRN (06:37)
[2022-06-03] MEDS: Prenatal Vit/FA 1 EACH TABLET PO SCH (07:32)
[2022-06-03] MEDS: Ibuprofen 600 MG TABLET PO SCH ×3 (07:33→20:04)
[2022-06-03] MEDS: Acetaminophen 325 MG TABLET PO SCH ×4 (07:33→20:04)
[2022-06-03 18:34] VITALS: O2SAT 98
[2022-06-04 06:54] VITALS: BP 134/75; PULSE 79; TEMP 98.1
[2022-06-04] MEDS: Prenatal Vit/FA 1 EACH TABLET PO SCH (08:08)
[2022-06-04] MEDS: Ibuprofen 600 MG TABLET PO SCH (08:09)
[2022-06-04] MEDS: Acetaminophen 325 MG TABLET PO SCH (08:09)
== END 2022-06-04 12:24 | disposition home or self-care (01) | DRG 560 ==
LOC: 1NENULAB 12:59 → 1NENUOBS 06-03 06:20
PROVIDERS: ADMIT Advanced Practice Midwife; ATTEND Advanced Practice Midwife